=== PATIENT | male | born 1950 | race Caucasian/White ===

== ENCOUNTER 2018-06-25 11:08 | Emergency (ER) | payer OTHER ==
[~2018-06-25] VITALS: Ht 162.6 cm; Wt 81.6 kg
[~2018-06-25 11:08] MED LIST: ALTACE10 MG; CELEBREX100 MG PO; CLONAZEPAM0.5 MG PO; OMEGA 3 FISH OI1 CAP; SKELAXIN800 MG PO
[2018-06-25] MEDS ORDERED: METFORMIN HCL500 MG PO (11:22)
[2018-06-25] MEDS ORDERED: PROPRANOLOL HCL10 MG PO (11:22)
== END 2018-06-25 14:04 | disposition home or self-care (01) ==
LOC: ER 11:08
DX: B34.9 Viral infection, unspecified (principal); H10.13 Acute atopic conjunctivitis, bilateral

== ENCOUNTER 2019-08-23 17:20 | Emergency (ER) | payer OTHER ==
[~2019-08-23] VITALS: Ht 165.1 cm; Wt 82.6 kg
[~2019-08-23 17:20] MED LIST changes: +METFORMIN HCL500 MG PO; +PROPRANOLOL HCL10 MG PO
== END 2019-08-23 19:14 | disposition home or self-care (01) ==
LOC: ER 17:20
DX: I10 Essential (primary) hypertension (principal)

== ENCOUNTER 2020-02-01 06:17 | Day surgery (SDC) | payer OTHER ==
[~2020-02-01 06:17] MED LIST changes: +ADULT LOW DOSE81 M1; +MILK THISTLE140 M1 PO; +[UNRECOGNIZED DRUG - OTHER] PO
[2020-02-01] MEDS ORDERED: CIPRO500 MG PO (12:07)
[2020-02-01] MEDS ORDERED: ULTRACET PO (12:07)
== END 2020-02-01 14:00 | disposition home or self-care (01) ==
LOC: CIR.AMB 06:17 → ADM 09:15 → CIR.AMB 09:15
PROVIDERS: ATTEND Surgery
DX: M67.472 Ganglion, left ankle and foot (principal); Z20.828 Contact with and (suspected) exposure to other viral communicable diseases

== ENCOUNTER 2021-10-30 13:33 | Emergency (ER) | payer OTHER ==
[~2021-10-30] VITALS: Ht 162.6 cm; Wt 82.6 kg
[~2021-10-30 13:33] MED LIST changes: +CIPRO500 MG PO; +ULTRACET PO
[2021-10-30] MEDS ORDERED: EZALLOR SPRINKLE5 MG PO (14:28)
[2021-10-30] MEDS ORDERED: ACID REDUCER20 M1 (14:28)
[2021-10-30] MEDS ORDERED: GLUMETZA500 MG (14:28)
== END 2021-10-30 21:56 | disposition home or self-care (01) ==
LOC: ER 13:33
DX: I48.91 Unspecified atrial fibrillation (principal); R04.0 Epistaxis; I10 Essential (primary) hypertension; Z20.822 Contact with and (suspected) exposure to COVID-19; Z88.0 Allergy status to penicillin